=== PATIENT | female | born 1985 | race Hispanic/Latino ===

== ENCOUNTER 2016-06-17 19:27 | Emergency (ER) | payer SELFPAY ==
[2016-06-17 19:37] VITALS: BP 125/76; PULSE 106; RESP 16; TEMP 98.2; O2SAT 98
--- NOTE | 2016-06-17 19:50 | ED PDOC ---
Upper Extremity Pain/Injury Time Seen by Provider: 06/17/16 19:38 Chief Complaint (Nursing): Finger,Hand,&Wrist Chief Complaint (Provider): hand injury History Per: Patient History/Exam Limitations: no limitations Onset/Duration Of Symptoms: Days (1x week) Current Symptoms Are (Timing): Still Present Severity: Moderate Additional Complaint(s): 30 year old female (right hand dominant) with no pertinent medical history presents to the ED with complaints of right hand pain status post trip and fall one week ago. She did not seek any medical attention at time of fall. She thought pain and swelling would improve but it hasn't so she came to ED today for further evaluation. She denies having any numbness or tingling of the area. Aspirin has helped the pain. PMD: PMD in [place]. Past Medical History Reviewed: Historical Data, Nursing Documentation, Vital Signs Vital Signs: Last Vital Signs Temp 98.2 F 06/17/16 19:31 Pulse 106 H 06/17/16 19:31 Resp 16 06/17/16 19:31 BP 125/76 06/17/16 19:31 Pulse Ox 98 06/17/16 19:31 - Medical History PMH: Asthma - Surgical History Surgical History: No Surg Hx - Family History Family History: States: No Known Family Hx - Living Arrangements Living Arrangements: With Family - Social History Current smoker - smoking cessation education provided: Yes (1 ppd) Alcohol: None Drugs: Denies - Home Medications Home Medications: Ambulatory Orders Medication Instructions Recorded Ibuprofen [Motrin Tab] 800 mg PO Q8 PRN #20 tab 06/17/16 - Allergies Allergies/Adverse Reactions: Allergies Allergy/AdvReac Type Severity Reaction Status Date / Time No Known Allergies Allergy Verified 06/17/16 19:31 Review of Systems ROS Statement: Except As Marked, All Systems Reviewed And Found Negative Musculoskeletal: Positive for: Hand Pain (right hand pain s/p fall one week ago) Neurological: Negative for: Numbness (no tingling) Physical Exam - Reviewed Nursing Documentation Reviewed: Yes Vital Signs Reviewed: Yes - Physical Exam Appears: Positive for: Well, Non-toxic, No Acute Distress Head Exam: Positive for: ATRAUMATIC Neck: Positive for: Painless ROM Cardiovascular/Chest: Positive for: Regular Rate, Rhythm Respiratory: Positive for: Normal Breath Sounds. Negative for: Respiratory Distress Extremity: Positive for: Other (Tenderness to right 5th metacarpal region distally, full rom of all digits of right hand with pain, normal cap refill, full rom right wrist with no snuff box tenderness) Neurologic/Psych: Positive for: Alert, Oriented (x 3) - Laboratory Results Urine POC: Negative (patient refused test, states she is certain she is not ) - ECG O2 Sat by Pulse Oximetry: 98 (RA) Pulse Ox Interpretation: Normal - Other Rad right hand x-ray X-Ray: Interpreted by Me, Viewed By Me X-Ray Interpretation: displaced fracture distal 5th metacarpal Medical Decision Making Medical Decision Makin:38 Initial impression: 30 year old female with right hand injury Plan: * XRay hand right * motrin tab 600mg PO * reevaluation Splint applied to right hand, rx motrin given along with copies of x-rays and hand specialist referral. Scribe Attestation: Documented by Paty Toth, acting as a scribe for Judith Michael PA-C. Provider Scribe Attestation: All medical record entries made by the Scribe were at my direction and personally dictated by me. I have reviewed the chart and agree that the record accurately reflects my personal performance of the history, physical exam, medical decision making, and the department course for this patient. I have also personally directed, reviewed, and agree with the discharge instructions and disposition. Procedures - Splinting Location: right hand Pre-Made Type: metal (metallic metacarpal splint, secured with scot wrap) Pre-Proc Neuro Vasc Exam: normal Post-Proc Neuro Vasc Exam: normal Disposition - Clinical Impression Clinical Impression: Hand fracture, right - Patient ED Disposition Is Patient to be Admitted: No Counseled Patient/Family Regarding: Studies Performed, Diagnosis, Need For Followup, Rx Given - Disposition Referrals: George Daley MD [Medical Doctor] - Disposition: Routine/Home Disposition Time: 20:47 Condition: STABLE Additional Instructions: Ice, rest and elevate affected area. Keep splint on at all times. Take rx meds as directed as needed for pain. Follow up KATHLEEN with hand specialist. Prescriptions: Ibuprofen [Motrin Tab] 800 mg PO Q8 PRN #20 tab PRN Reason: Pain, Moderate (4-7) Instructions: Hand Fracture (ED)
--- NOTE | 2016-06-18 10:41 | RAD ---
PROCEDURE: Right Hand Radiographs. HISTORY: trauma COMPARISON: None. FINDINGS: BONES: There is evidence of a mildly angulated distal right 5th metacarpal fracture. No other fractures are seen. No erosions are noted. JOINTS: Normal. No osteoarthritic changes. SOFT TISSUES: Mild soft tissue swelling is seen overlying the right 5th metacarpal. OTHER FINDINGS: None. IMPRESSION: Right 5th metacarpal fracture.
== END 2016-06-17 20:50 | disposition home or self-care (01) ==
LOC: H.ER 19:27
DX: S62.306A Unspecified fracture of fifth metacarpal bone, right hand, initial encounter for closed fracture (principal); W01.0XXA Fall on same level from slipping, tripping and stumbling without subsequent striking against object, initial encounter; F17.210 Nicotine dependence, cigarettes, uncomplicated